=== PATIENT | male | born 1975 | race Two or more races ===

== ENCOUNTER 2016-12-05 10:38 | Emergency (ER) | payer MEDICARE, OTHER ==
[~2016-12-05] VITALS: Ht 188 cm; Wt 93.0 kg
[2016-12-05 10:43] VITALS: BP 100/72
[2016-12-05 11:20] LABS: Basophils # (auto) 0.2 uL; Basophils % (auto) 1.6 % (0.0-2.0); CONDITION Y; Eosinophils # (auto) 0.1 uL; Eosinophils % (auto) 0.9 % (0.0-7.0); Hematocrit 47.3 % (41.0-53.0); Hemoglobin 16.4 g/dL (13.5-17.5); Lymphocytes # (auto) 3.7 uL; Lymphocytes % (auto) 33.5 % (10.0-50.0); Mean Corpuscular Hemoglobin 30.7 pg (28.0-32.0); Mean Corpuscular Hgb Conc. 34.7 g/dL (32.0-36.0); Mean Corpuscular Volume 88.6 fL (80.0-100.0); Mean Platelet Volume 7.9 fL (7.4-10.4); Monocytes # (auto) 0.5 uL; Monocytes % (auto) 4.7 % (0.0-12.0); Neutrophils # (auto) 6.5 uL; Neutrophils % (auto) 59.3 % (37.0-80.0); Platelet Count (auto) 363 10^3/uL (140-450); Red Cell Distribution Width 12.7 % (11.6-16.0); White Blood Cell 10.9 10^3/uL (4.4-10.8)
[2016-12-05 11:48] LABS: Albumin 4.2 g/dL (3.4-5.0); Anion Gap 11 (5-15); Aspartate Aminotransferase 24 U/L (15-37); BUN/Creatinine Ratio 18.8; Blood Urea Nitrogen 21 mg/dL (7-18); Calcium 9.4 mg/dL (8.5-10.1); Carbon Dioxide 21 mmol/L (21-32); Chloride 103 mmol/L (98-107); GFR African American 93 mL/min; GFR Non-African American 77 mL/min; Glucose 275 mg/dL (74-106); Potassium 4.8 mmol/L (3.5-5.1); Sodium 135 mmol/L (136-145)
[2016-12-05 11:52] LABS: Alkaline Phosphatase 48 U/L (45-117); Bilirubin, Total 0.5 mg/dL (0.2-1.0); Total Protein 8.1 g/dL (6.4-8.2)
== END 2016-12-05 13:46 | disposition left against medical advice (07) ==
LOC: ER 10:38
DX: R07.9 Chest pain, unspecified (principal); R06.02 Shortness of breath; Z53.21 Procedure and treatment not carried out due to patient leaving prior to being seen by health care provider
CPT/HCPCS: 36415; 71020; 80053; 82962; 84484; 85025; 93005

== ENCOUNTER → 2019-05-29 | Outpatient (CLI) | payer MEDICARE, OTHER ==
[~2019-05-29] VITALS: Ht 185.4 cm; Wt 98.0 kg
[~2019-05-29] MED LIST: ADENOSINE 82 MG in GIVE UN-DILUTED 0 ML IV ONE
== END | disposition home or self-care (01) ==
LOC: XY 08:06
PROVIDERS: ATTEND Internal Medicine
DX: Z01.810 Encounter for preprocedural cardiovascular examination (principal); I25.10 Atherosclerotic heart disease of native coronary artery without angina pectoris
CPT/HCPCS: 78452; 93017; A9500; J0153

== ENCOUNTER → 2019-05-31 | Outpatient (CLI) | payer MEDICARE, OTHER | END | disposition home or self-care (01) | LOC: XYW 08:23 | PROVIDERS: ATTEND Internal Medicine | DX: Z01.810 Encounter for preprocedural cardiovascular examination (principal); I51.7 Cardiomegaly | CPT/HCPCS: 93306 ==

== ENCOUNTER 2021-03-01 14:06 | Emergency (ER) | payer MEDICARE, OTHER ==
[~2021-03-01] VITALS: Ht 185.4 cm; Wt 86.2 kg
[2021-03-01 14:07] VITALS: BP 111/62
[2021-03-01] MEDS ORDERED: SODIUM CHLORIDE 0.9% 1,000 ML IVB ONE (14:15)
[2021-03-01] MEDS ORDERED: KETOROLAC TROMETH 30 MG/ML 1ML VIAL IV ONE (14:15)
[2021-03-01] MEDS ORDERED: MORPHINE SULFATE 4 MG/ML SYR/VIAL IV ONE (14:15)
[2021-03-01] MEDS ORDERED: ONDANSETRON HCL 4 MG/2 ML VIAL IV ONE (14:15)
== END 2021-03-01 15:15 | disposition left against medical advice (07) ==
LOC: ER 14:06
DX: R10.9 Unspecified abdominal pain (principal); I10 Essential (primary) hypertension; E78.00 Pure hypercholesterolemia, unspecified; I25.10 Atherosclerotic heart disease of native coronary artery without angina pectoris; Z88.0 Allergy status to penicillin; Z98.890 Other specified postprocedural states

== ENCOUNTER → 2021-05-24 | Outpatient (CLI) | payer MEDICARE, OTHER | END | disposition home or self-care (01) | LOC: XYW 09:47 | PROVIDERS: ATTEND Internal Medicine | DX: I51.7 Cardiomegaly (principal); I42.0 Dilated cardiomyopathy; I42.9 Cardiomyopathy, unspecified; I35.0 Nonrheumatic aortic (valve) stenosis | CPT/HCPCS: 93306 ==

== ENCOUNTER 2021-08-22 10:23 | Emergency (ER) | payer MEDICARE, OTHER ==
[~2021-08-22] VITALS: Ht 177.8 cm; Wt 77.1 kg
[2021-08-22 11:05] VITALS: BP 128/82
[2021-08-22 11:29] LABS: Basophils # (auto) 0.2 10 ^3/uL (0-0.2); Basophils % (auto) 1.9 % (0.0-2.0); Eosinophils # (auto) 0 10 ^3/uL (0-0.8); Eosinophils % (auto) 0.4 % (0.0-7.0); Hematocrit 40.5 % (41.0-53.0); Hemoglobin 13.5 g/dL (13.5-17.5); Lymphocytes % (auto) 24.1 % (10.0-50.0); Mean Corpuscular Hemoglobin 29.6 pg (28.0-32.0); Mean Corpuscular Hgb Conc. 33.2 g/dL (32.0-36.0); Mean Corpuscular Volume 89.1 fL (80.0-100.0); Monocytes # (auto) 0.4 10 ^3/uL (0-1.3); Monocytes % (auto) 4.5 % (0.0-12.0); Neutrophils # (auto) 5.7 10 ^3/uL (1.6-8.6); Neutrophils % (auto) 69.1 % (37.0-80.0); Red Blood Cells 4.55 10^6/uL (4.5-5.90); Red Cell Distribution Width 13.6 % (11.8-14.3); White Blood Cell 8.3 10^3/uL (4.4-10.8)
[2021-08-22 11:38] LABS: Albumin 4.6 g/dL (3.4-5.0); Anion Gap 5 (5-15); Blood Urea Nitrogen 18 mg/dL (7-18); Calcium 9.3 mg/dL (8.5-10.1); Carbon Dioxide 25 mmol/L (21-32); Chloride 110 mmol/L (98-107); Glucose 162 mg/dL (74-106); Potassium 3.7 mmol/L (3.5-5.1); Sodium 140 mmol/L (136-145)
[2021-08-22 11:38] LABS: Alcohol, Urine < 3.0 mg/dL (0-10); Amphetamine Screen, Urine POSITIVE (NEGATIVE); Barbiturate Scree,Urine NEGATIVE (NEGATIVE); Benzodiazephine Screen, Urine POSITIVE (NEGATIVE); Cannabinoid Screen, Urine POSITIVE (NEGATIVE); Cocaine Screen, Urine NEGATIVE (NEGATIVE); Opiate Scree,Urine NEGATIVE (NEGATIVE); Phencyclidine Screen, Urine NEGATIVE (NEGATIVE)
[2021-08-22 11:39] LABS: Salicylate 3.9 mg/dL (2.8-20.0)
[2021-08-22 11:40] LABS: Alanine Aminotransferase 40 U/L (16-61); Aspartate Aminotransferase 23 U/L (15-37); BUN/Creatinine Ratio 18.2; Blood Alcohol < 3.0 mg/dL (0-5); GFR African American 105 mL/min; GFR Non-African American 86 mL/min
[2021-08-22 11:41] LABS: Acetaminophen < 2.0 ug/mL (10-30)
[2021-08-22 11:42] LABS: Alkaline Phosphatase 41 U/L (45-117); Bilirubin, Total 0.3 mg/dL (0.2-1.0); Total Protein 8.3 g/dL (6.4-8.2)
[2021-08-23] MEDS ORDERED: FENO134C PO (21:33)
[2021-08-23] MEDS ORDERED: GLIP10TA9 PO (21:33)
[2021-08-23] MEDS ORDERED: CLOP75TA70 PO (21:33)
[2021-08-23] MEDS ORDERED: CYCL-839 PO (21:33)
[2021-08-23] MEDS ORDERED: BACL10TA PO (21:33)
[2021-08-23] MEDS ORDERED: TAMS1CAP25 PO (21:33)
[2021-08-23] MEDS ORDERED: LAMO100T44 PO (21:33)
[2021-08-23] MEDS ORDERED: PRAV20TA3 PO (21:33)
[2021-08-23] MEDS ORDERED: SACU1TAB7 PO (21:33)
[2021-08-23] MEDS ORDERED: METO-289 PO (21:33)
[2021-08-23] MEDS ORDERED: DUTA0.5C11 PO (21:33)
[2021-08-23] MEDS ORDERED: ARIP2TAB PO (21:33)
[2021-08-23] MEDS ORDERED: GABA300C10 PO (21:33)
== END 2021-08-22 14:03 | disposition left against medical advice (07) ==
LOC: EDBD 10:23 → ER 10:23
DX: S61.512A Laceration without foreign body of left wrist, initial encounter (principal); F41.8 Other specified anxiety disorders; I10 Essential (primary) hypertension; E11.9 Type 2 diabetes mellitus without complications; I25.10 Atherosclerotic heart disease of native coronary artery without angina pectoris; E78.5 Hyperlipidemia, unspecified; Z88.0 Allergy status to penicillin; X78.9XXA Intentional self-harm by unspecified sharp object, initial encounter; Y93.89 Activity, other specified; Y92.89 Other specified places as the place of occurrence of the external cause; Y99.8 Other external cause status
CPT/HCPCS: 12002; 36415; 80053; 80307; 80320; 80329; 85025; 99283; J7030

== ENCOUNTER 2021-08-22 18:23 | Emergency (ER) | payer MEDICARE, OTHER ==
[~2021-08-22] VITALS: Ht 185.4 cm; Wt 90.7 kg
[2021-08-23] MEDS ORDERED: LORazepam 0.5 MG TAB PO ONE (05:45)
[2021-08-23] MEDS ORDERED: GABAPENTIN 400 MG CAP PO ONE (12:45)
[2021-08-23] MEDS ORDERED: LORazepam 2MG/ML-1ML VIAL IM ONE (17:00)
[2021-08-23] MEDS ORDERED: FENO134C PO (21:33)
[2021-08-23] MEDS ORDERED: TAMS1CAP25 PO (21:33)
[2021-08-23] MEDS ORDERED: PRAV20TA3 PO (21:33)
[2021-08-23] MEDS ORDERED: LAMO100T44 PO (21:33)
[2021-08-23] MEDS ORDERED: GABA300C10 PO (21:33)
[2021-08-23] MEDS ORDERED: BACL10TA PO (21:33)
[2021-08-23] MEDS ORDERED: METO-289 PO (21:33)
[2021-08-23] MEDS ORDERED: ARIP2TAB PO (21:33)
[2021-08-23] MEDS ORDERED: GLIP10TA9 PO (21:33)
[2021-08-23] MEDS ORDERED: CYCL-839 PO (21:33)
[2021-08-23] MEDS ORDERED: DUTA0.5C11 PO (21:33)
[2021-08-23] MEDS ORDERED: CLOP75TA70 PO (21:33)
[2021-08-23] MEDS ORDERED: SACU1TAB7 PO (21:33)
[2021-08-23] MEDS ORDERED: OLANZapine 5 MG TAB PO ONE (22:15)
[2021-08-23] MEDS ORDERED: GABAPENTIN 300 MG CAP PO ONE (23:00)
[2021-08-23] MEDS ORDERED: GABAPENTIN 100 MG CAP PO ONE (23:00)
[2021-08-24] MEDS ORDERED: LORazepam 2MG/ML-1ML VIAL IM PRN (13:00)
[2021-08-24] MEDS: CYCLOBENZAPRINE HCL 10 MG TAB PO SCH ×2 (15:19→22:21)
[2021-08-24] MEDS: GABAPENTIN 300 MG CAP PO SCH ×2 (15:19→22:21)
[2021-08-24] MEDS ORDERED: TAMSULOSIN HYDROCHLORIDE 0.4 MG CAP PO SCH (22:00)
[2021-08-24] MEDS ORDERED: glipiZIDE 5 MG TAB PO SCH (22:00)
[2021-08-24] MEDS ORDERED: GABAPENTIN 300 MG CAP PO SCH (22:00)
[2021-08-24] MEDS ORDERED: BACLOFEN 10 MG TAB PO SCH (22:00)
[2021-08-24] MEDS ORDERED: Sacubitril-Valsartan (Entresto 49-51 mg) TABLET PO SCH (22:00)
[2021-08-24] MEDS ORDERED: CYCLOBENZAPRINE HCL 10 MG TAB PO SCH (22:00)
[2021-08-25 00:25] VITALS: BP 124/77
[2021-08-25] MEDS ORDERED: lamoTRIgine 100 MG TAB PO SCH (10:00)
[2021-08-25] MEDS ORDERED: CLOPIDOGREL BISULFATE 75 MG TAB PO SCH (10:00)
[2021-08-25] MEDS ORDERED: METOPROLOL SUCCINATE XL 50 MG TAB PO SCH (10:00)
[2021-08-25] MEDS ORDERED: FENOFIBRATE 134 MG PO SCH (10:00)
[2021-08-25] MEDS ORDERED: PRAVASTATIN SODIUM 20 MG TAB PO SCH (10:00)
[2021-08-25] MEDS ORDERED: lamoTRIgine 25 MG TAB PO SCH (10:00)
== END 2021-08-25 01:00 | disposition home or self-care (01) ==
LOC: ER 18:24
DX: F32.9 Major depressive disorder, single episode, unspecified (principal); I10 Essential (primary) hypertension; I25.10 Atherosclerotic heart disease of native coronary artery without angina pectoris; E11.9 Type 2 diabetes mellitus without complications; E78.5 Hyperlipidemia, unspecified
CPT/HCPCS: 82962; 96372; 99285; J2060

== ENCOUNTER 2022-02-27 12:39 | Inpatient (IN) | payer MEDICARE, OTHER ==
[~2022-02-27] VITALS: Ht 185.4 cm; Wt 89.0 kg
[~2022-02-27 12:39] MED LIST changes: -ADENOSINE 82 MG in GIVE UN-DILUTED 0 ML IV ONE; +ARIP2TAB PO; +BACL10TA PO; +CLOP75TA70 PO; +CYCL-839 PO; +DUTA0.5C11 PO; +FENO134C PO; +GABA300C10 PO; +GLIP10TA9 PO; +LAMO100T44 PO; +METO-289 PO; +PRAV20TA3 PO; +SACU1TAB7 PO; +TAMS1CAP25 PO
[2022-02-27] MEDS ORDERED: MORPHINE SULFATE INJ 2 MG/ml SYRG IV ONE (13:00)
[2022-02-27] MEDS ORDERED: PROCHLORPERAZINE EDISYLATE 5 MG/ML 2ML VIAL IV ONE (13:00)
[2022-02-27] MEDS ORDERED: PANTOPRAZOLE 40 MG/10 ML VIAL INJ IV ONE (13:00)
[2022-02-27] MEDS ORDERED: SODIUM CHLORIDE 0.9% 1,000 ML IVB ONE (13:00)
[2022-02-27 13:15] LABS: Basophils # (auto) 0.1 10 ^3/uL (0-0.2); Basophils % (auto) 0.5 % (0.0-2.0); Eosinophils # (auto) 0 10 ^3/uL (0-0.8); Eosinophils % (auto) 0.1 % (0.0-7.0); Hematocrit 50.5 % (41.0-53.0); Hemoglobin 16.3 g/dL (13.5-17.5); Lymphocytes # (auto) 0.9 10 ^3/uL (0.4-5.4); Lymphocytes % (auto) 4.1 % (10.0-50.0); Mean Corpuscular Hemoglobin 29.3 pg (28.0-32.0); Mean Corpuscular Hgb Conc. 32.3 g/dL (32.0-36.0); Mean Corpuscular Volume 90.7 fL (80.0-100.0); Monocytes # (auto) 1.9 10 ^3/uL (0-1.3); Monocytes % (auto) 9.1 % (0.0-12.0); Neutrophils # (auto) 18.4 10 ^3/uL (1.6-8.6); Neutrophils % (auto) 86.2 % (37.0-80.0); Red Blood Cells 5.56 10^6/uL (4.5-5.90); Red Cell Distribution Width 12.7 % (11.8-14.3); White Blood Cell 21.3 10^3/uL (4.4-10.8)
[2022-02-27 13:37] LABS: Calcium 10.5 mg/dL (8.5-10.1); Potassium 4.5 mmol/L (3.5-5.1)
[2022-02-27 13:41] LABS: BUN/Creatinine Ratio 11.3; Bilirubin, Total 0.5 mg/dL (0.2-1.0); Total Protein 8.6 g/dL (6.4-8.2)
[2022-02-27 13:43] LABS: Magnesium 1.6 mg/dL (1.6-2.6)
[2022-02-27] MEDS ORDERED: InsuLIN REG 1unit/0.01ml Soln (100units/ml) IV ONE (14:45)
[2022-02-27] MEDS ORDERED: SODIUM CHLORIDE 0.9% 1,000 ML IV ONE (14:45)
[2022-02-27 14:56] LABS: Urine Bacteria NONE SEEN /hpf (None Seen); Urine Blood 1+ /uL (Negative); Urine Hyaline Cast FEW /lpf (0 - 2); Urine Mucus FEW (None Seen); Urine Specific Gravity 1.025 (1.001-1.035); Urine WBC 2 /hpf (0 - 3)
[2022-02-27] MEDS ORDERED: LORazepam 2MG/ML-1ML VIAL IV ONE (18:45)
[2022-02-27] MEDS ORDERED: LABETALOL HCL 5 MG/ML 4ML SYRINGE IV PRN (21:00)
[2022-02-27] MEDS ORDERED: DEXTROSE (50%) 50ML SYRG IV PRN (21:00)
[2022-02-27] MEDS: SODIUM CHLORIDE 0.9% 1,000 ML IV SCH (21:00)
[2022-02-27] MEDS ORDERED: MORPHINE SULFATE INJ 2 MG/ml SYRG IV PRN (21:00)
[2022-02-27] MEDS ORDERED: ONDANSETRON HCL 4 MG/2 ML VIAL IV PRN (21:00)
[2022-02-27] MEDS ORDERED: NITROGLYCERIN 0.4 MG SL TAB SL PRN (21:00)
[2022-02-27] MEDS: MORPHINE SULFATE INJ 2 MG/ml SYRG IV PRN (21:59)
[2022-02-27 23:32] VITALS: BP 131/77
[2022-02-28] MEDS: InsuLIN REG 1unit/0.01ml Soln (100units/ml) SC SCH ×4 (00:57→18:13)
[2022-02-28] MEDS: MORPHINE SULFATE INJ 2 MG/ml SYRG IV PRN ×2 (02:05→06:02)
[2022-02-28] MEDS ORDERED: cefTRIAXone 1GM/50ML D5W 50 ML IV SCH (02:45)
[2022-02-28 05:00] VITALS: BP 145/84
[2022-02-28] MEDS: ACCU-CHEK COMFORT CURVE STRIP VI SCH ×4 (06:02→18:11)
[2022-02-28 06:10] LABS: Potassium 3.7 mmol/L (3.5-5.1)
[2022-02-28 06:17] LABS: Albumin 3.5 g/dL (3.4-5.0); BUN/Creatinine Ratio 15.1; Calcium 8.3 mg/dL (8.5-10.1)
[2022-02-28] MEDS ORDERED: BUPR100T8 PO (06:21)
[2022-02-28] MEDS ORDERED: ZOLP10TA6 PO (06:21)
[2022-02-28] MEDS ORDERED: SITA50TA28 PO (06:21)
[2022-02-28] MEDS ORDERED: CELE1CAP8 PO (06:21)
[2022-02-28] MEDS ORDERED: ASPI-543 PO (06:22)
[2022-02-28] MEDS ORDERED: INSU1INJ13 SC (06:22)
[2022-02-28 06:26] LABS: Bilirubin, Total 0.4 mg/dL (0.2-1.0); Total Protein 6.8 g/dL (6.4-8.2)
[2022-02-28 07:51] LABS: Basophils # (auto) 0.1 10 ^3/uL (0-0.2); Basophils % (auto) 0.9 % (0.0-2.0); Eosinophils # (auto) 0.3 10 ^3/uL (0-0.8); Eosinophils % (auto) 3.4 % (0.0-7.0); Hematocrit 38.1 % (41.0-53.0); Hemoglobin 12.6 g/dL (13.5-17.5); Lymphocytes # (auto) 1.9 10 ^3/uL (0.4-5.4); Lymphocytes % (auto) 20.4 % (10.0-50.0); Mean Corpuscular Hemoglobin 29.8 pg (28.0-32.0); Mean Corpuscular Hgb Conc. 32.9 g/dL (32.0-36.0); Mean Corpuscular Volume 90.6 fL (80.0-100.0); Monocytes # (auto) 0.8 10 ^3/uL (0-1.3); Monocytes % (auto) 8.8 % (0.0-12.0); Neutrophils # (auto) 6.1 10 ^3/uL (1.6-8.6); Neutrophils % (auto) 66.5 % (37.0-80.0); Red Blood Cells 4.21 10^6/uL (4.5-5.90); Red Cell Distribution Width 12.7 % (11.8-14.3); White Blood Cell 9.2 10^3/uL (4.4-10.8)
[2022-02-28 08:30] VITALS: BP_SYST 130; BP_SYST 157; BP_DIAS 56; BP_DIAS 78
[2022-02-28] MEDS ORDERED: GASTROGRAFIN 120 ML SOL ONE (10:09)
[2022-02-28] MEDS: SODIUM CHLORIDE 0.9% 1,000 ML IV SCH ×2 (10:30→23:40)
[2022-02-28] MEDS: PANTOPRAZOLE 40 MG/10 ML VIAL INJ IV SCH (10:30)
[2022-02-28 12:30] VITALS: BP 134/79
[2022-02-28] MEDS ORDERED: GABAPENTIN 300 MG CAP PO SCH ×2 (14:00)
[2022-02-28 17:00] VITALS: BP 117/71
[2022-02-28] MEDS: GABAPENTIN 300 MG CAP PO SCH ×2 (21:32→22:00)
[2022-02-28 22:00] VITALS: BP 134/78
[2022-03-01 05:00] VITALS: BP 132/86
[2022-03-01 05:32] LABS: Basophils # (auto) 0 10 ^3/uL (0-0.2); Basophils % (auto) 0.4 % (0.0-2.0); Eosinophils # (auto) 0.2 10 ^3/uL (0-0.8); Eosinophils % (auto) 2.5 % (0.0-7.0); Hematocrit 35.2 % (41.0-53.0); Hemoglobin 11.8 g/dL (13.5-17.5); Lymphocytes # (auto) 2.2 10 ^3/uL (0.4-5.4); Lymphocytes % (auto) 25.9 % (10.0-50.0); Mean Corpuscular Hemoglobin 30.1 pg (28.0-32.0); Mean Corpuscular Hgb Conc. 33.4 g/dL (32.0-36.0); Monocytes # (auto) 0.6 10 ^3/uL (0-1.3); Neutrophils # (auto) 5.4 10 ^3/uL (1.6-8.6); Neutrophils % (auto) 64.2 % (37.0-80.0); Red Blood Cells 3.92 10^6/uL (4.5-5.90); Red Cell Distribution Width 12.6 % (11.8-14.3); White Blood Cell 8.4 10^3/uL (4.4-10.8)
[2022-03-01 05:55] LABS: Potassium 3.6 mmol/L (3.5-5.1)
[2022-03-01] MEDS: InsuLIN REG 1unit/0.01ml Soln (100units/ml) SC SCH ×3 (06:00→11:50)
[2022-03-01 06:06] LABS: BUN/Creatinine Ratio 13.2; Calcium 8.1 mg/dL (8.5-10.1)
[2022-03-01] MEDS: ACCU-CHEK COMFORT CURVE STRIP VI SCH ×3 (06:10→11:49)
[2022-03-01] MEDS: GABAPENTIN 300 MG CAP PO SCH ×2 (06:10→11:50)
[2022-03-01] MEDS: SODIUM CHLORIDE 0.9% 1,000 ML IV SCH ×2 (07:00→11:50)
[2022-03-01 09:00] VITALS: BP 133/81
[2022-03-01] MEDS: PANTOPRAZOLE 40 MG/10 ML VIAL INJ IV SCH (09:25)
[2022-03-01 12:50] VITALS: BP 129/83
== END 2022-03-01 13:45 | disposition left against medical advice (07) | DRG 390 ==
LOC: ER 12:41 → TELE 21:01 → TELE-EAST 23:35
PROVIDERS: ADMIT Nurse Practitioner; ATTEND Internal Medicine Pulmonary Disease
DX: K56.609 Unspecified intestinal obstruction, unspecified as to partial versus complete obstruction (principal); N18.9 Chronic kidney disease, unspecified; I12.9 Hypertensive chronic kidney disease with stage 1 through stage 4 chronic kidney disease, or unspecified chronic kidney disease; Z20.822 Contact with and (suspected) exposure to COVID-19; Z53.29 Procedure and treatment not carried out because of patient's decision for other reasons; D72.829 Elevated white blood cell count, unspecified; E11.22 Type 2 diabetes mellitus with diabetic chronic kidney disease; E78.5 Hyperlipidemia, unspecified; I25.10 Atherosclerotic heart disease of native coronary artery without angina pectoris; F12.90 Cannabis use, unspecified, uncomplicated; Z88.0 Allergy status to penicillin; Z80.9 Family history of malignant neoplasm, unspecified; I25.2 Old myocardial infarction
CPT/HCPCS: 36415; 71045; 74176; 74250; 80048; 80053; 81001; 82150; 82962; 83690; 83735; 85025; 87040; 96361; 96374; 96375; C9113; G0378; J1815; J2405

== ENCOUNTER → 2022-06-14 | Outpatient (CLI) | payer MEDICARE, OTHER ==
[~2022-06-14] MED LIST changes: +ASPI-543 PO; -BACL10TA PO; +BUPR100T8 PO; +CELE1CAP8 PO; -CYCL-839 PO; -DUTA0.5C11 PO; +INSU1INJ13 SC; +SITA50TA28 PO; +ZOLP10TA6 PO
== END | disposition home or self-care (01) ==
LOC: XYW 09:01
PROVIDERS: ATTEND Internal Medicine
DX: I51.7 Cardiomegaly (principal); I50.22 Chronic systolic (congestive) heart failure
CPT/HCPCS: 93306

== ENCOUNTER → 2023-02-13 | Outpatient (CLI) | payer MEDICARE, OTHER ==
[~2023-02-13] MED LIST changes: +BUPR100T16 PO; -BUPR100T8 PO; -FENO134C PO; +FENO134C19 PO; +GABA-1250 PO; -GABA300C10 PO
== END | disposition home or self-care (01) ==
LOC: XYW 14:54
PROVIDERS: ATTEND Student in an Organized Health Care Education/Training Program
DX: I51.89 Other ill-defined heart diseases (principal); I50.22 Chronic systolic (congestive) heart failure
CPT/HCPCS: 93306

== ENCOUNTER 2023-04-01 21:01 | Emergency (ER) | payer MEDICARE, OTHER ==
[~2023-04-01] VITALS: Ht 185.4 cm; Wt 91.8 kg
[2023-04-01 22:30] VITALS: BP 115/71; PULSE 96; RESP 20; O2SAT 97
== END 2023-04-01 22:51 | disposition left against medical advice (07) ==
LOC: ER 21:01
DX: R09.A2 Foreign body sensation, throat (principal); Z53.21 Procedure and treatment not carried out due to patient leaving prior to being seen by health care provider

== ENCOUNTER 2023-05-29 09:49 | Inpatient (IN) | payer MEDICARE, OTHER ==
[~2023-05-29] VITALS: Ht 177.8 cm; Wt 87.9 kg
[2023-05-29 10:30] LABS: Basophils # (auto) 0.1 10 ^3/uL (0-0.2); Basophils % (auto) 0.5 % (0.0-2.0); Eosinophils # (auto) 0.1 10 ^3/uL (0-0.8); Eosinophils % (auto) 0.3 % (0.0-7.0); Hematocrit 49.9 % (41.0-53.0); Hemoglobin 15.6 g/dL (13.5-17.5); Lymphocytes # (auto) 2.2 10 ^3/uL (0.4-5.4); Lymphocytes % (auto) 11.6 % (10.0-50.0); Mean Corpuscular Hemoglobin 30.4 pg (28.0-32.0); Mean Corpuscular Hgb Conc. 31.2 g/dL (32.0-36.0); Mean Corpuscular Volume 97.5 fL (80.0-100.0); Monocytes % (auto) 5.4 % (0.0-12.0); Neutrophils # (auto) 15.4 10 ^3/uL (1.6-8.6); Neutrophils % (auto) 82.2 % (37.0-80.0); Nucleated Red Blood Cells % 0.1 %; Red Blood Cells 5.12 10^6/uL (4.5-5.90); Red Cell Distribution Width 13.9 % (11.8-14.3); White Blood Cell 18.7 10^3/uL (4.4-10.8)
[2023-05-29 10:42] LABS: Urine Bacteria NONE SEEN /hpf (None Seen); Urine Blood 1+ /uL (Negative); Urine Clarity Clear (Clear); Urine Color Colorless (Yellow); Urine Protein, UAD TRACE (Negative); Urine Specific Gravity 1.023 (1.001-1.035); Urine Urobilinogen Normal (Negative); Urine WBC 1 /hpf (0 - 3)
[2023-05-29] MEDS ORDERED: PANTOPRAZOLE 40 MG/10 ML VIAL INJ IV ONE (10:45)
[2023-05-29] MEDS ORDERED: SODIUM CHLORIDE 0.9% 1,000 ML IVB ONE (10:45)
[2023-05-29] MEDS ORDERED: MORPHINE SULFATE 4 MG/ML SYR/VIAL IV ONE (10:45)
[2023-05-29] MEDS ORDERED: PROCHLORPERAZINE EDISYLATE 5 MG/ML 2ML VIAL IV ONE (10:45)
[2023-05-29 10:47] LABS: Alanine Aminotransferase 20 U/L (7-40); Albumin 5.2 g/dL (3.2-4.8); Alkaline Phosphatase 46 U/L (46-116); Anion Gap 27.00001 (5-15); Aspartate Aminotransferase 15 U/L (13-40); Bilirubin, Total 0.3 mg/dL (0.2-1.0); Blood Urea Nitrogen 19 mg/dL (9-23); Calcium 9.2 mg/dL (8.5-10.1); Chloride 95 mmol/L (98-107); Glucose 310 mg/dL (74-106); Potassium 4.1 mmol/L (3.5-5.1); Sodium 132 mmol/L (136-145)
[2023-05-29 10:48] LABS: Total Protein 8.1 g/dL (5.7-8.2)
[2023-05-29 10:54] LABS: Carbon Dioxide < 10 mmol/L (20-30)
[2023-05-29 10:59] VITALS: PULSE 66; RESP 22; O2SAT 96
[2023-05-29] MEDS ORDERED: INSULIN LANTUS (GLARGINE) 1 /0.01ml (100units/ml) SC ONE (11:15)
[2023-05-29] MEDS ORDERED: DEXTROSE (50%) 50ML SYRG IV PRN ×2 (11:15→12:00)
[2023-05-29] MEDS ORDERED: INSULIN DRIP 100 UNIT/100ML 100 ML IV SCH ×2 (11:15→12:00)
[2023-05-29] MEDS ORDERED: METOCLOPRAMIDE HCL 5MG/ml INJ 2ml VIAL IV PRN (12:00)
[2023-05-29] MEDS ORDERED: NITROGLYCERIN 0.4 MG SL TAB SL PRN (12:00)
[2023-05-29] MEDS ORDERED: DOCUSATE SOD 100 MG CAP PO PRN (12:00)
[2023-05-29] MEDS ORDERED: MAGNESIUM SULFATE 1GM/100ML 200 ML IV ONE (12:00)
[2023-05-29] MEDS ORDERED: MORPHINE SULFATE INJ 2 MG/ml SYRG IV PRN ×2 (12:00)
[2023-05-29] MEDS ORDERED: ONDANSETRON HCL 4 MG/2 ML VIAL IV PRN (12:00)
[2023-05-29] MEDS ORDERED: ACCU-CHEK COMFORT CURVE STRIP VI SCH (12:00)
[2023-05-29] MEDS ORDERED: HYDROcodone-ACET 5/325MG TAB PO PRN (12:00)
[2023-05-29 12:11] LABS: Base Excess -21.2 mmol/L (-2.0-2.0)
[2023-05-29] MEDS ORDERED: hydrALAZINE HCL 20 MG/ML VL IV PRN (12:45)
[2023-05-29 13:06] LABS: Magnesium 2.2 mg/dL (1.6-2.6)
[2023-05-29 13:07] LABS: Phosphorus 5.3 mg/dL (2.4-5.1)
[2023-05-29] MEDS: ACCU-CHEK COMFORT CURVE STRIP VI SCH ×7 (13:37→22:32)
[2023-05-29] MEDS: SODIUM CHLORIDE 0.9% 1,000 ML IV SCH ×2 (13:37→14:07)
[2023-05-29] MEDS: BUPROPION 300 MG PO SCH (14:00)
[2023-05-29] MEDS ORDERED: LORazepam 2MG/ML-1ML VIAL IV ONE (14:45)
[2023-05-29] MEDS ORDERED: SODIUM CHLORIDE 0.9% 1,000 ML IV SCH (16:00)
[2023-05-29 16:31] LABS: Chloride 106 mmol/L (98-107); Potassium 3.9 mmol/L (3.5-5.1); Sodium 136 mmol/L (136-145)
[2023-05-29 16:32] LABS: Anion Gap 20.00001 (5-15)
[2023-05-29 16:33] LABS: Calcium 7.9 mg/dL (8.7-10.4)
[2023-05-29 16:37] LABS: BUN/Creatinine Ratio 18.2 (10.0-20.0); Blood Urea Nitrogen 24 mg/dL (9-23); Glucose 187 mg/dL (74-106)
[2023-05-29 16:46] LABS: Carbon Dioxide < 10 mmol/L (20-30)
[2023-05-29] MEDS: POTASSIUM CHLORIDE 20 MEQ in SODIUM CHLORIDE 0.9% 1,000 ML IV SCH (18:00)
[2023-05-29] MEDS: D5W/SOD CHL 0.45%/KCL 20MEQ 1,000 ML IV SCH ×2 (18:47→19:02)
[2023-05-29 19:30] VITALS: PULSE 93; RESP 18; O2SAT 99
[2023-05-29 21:00] LABS: Chloride 109 mmol/L (98-107); Potassium 4.2 mmol/L (3.5-5.1); Sodium 137 mmol/L (136-145)
[2023-05-29 21:01] LABS: Anion Gap 14 (5-15); Calcium 7.7 mg/dL (8.7-10.4); Carbon Dioxide 14 mmol/L (20-30)
[2023-05-29 21:06] LABS: BUN/Creatinine Ratio 11.9 (10.0-20.0); Blood Urea Nitrogen 14 mg/dL (9-23); Glucose 155 mg/dL (74-106)
[2023-05-29] MEDS: TAMSULOSIN HYDROCHLORIDE 0.4 MG CAP PO SCH (22:00)
[2023-05-29] MEDS: CELECOXIB 100 MG CAP PO SCH (22:00)
[2023-05-29] MEDS: ARIPIPRAZOLE 30 MG PO SCH (22:00)
[2023-05-29] MEDS: SACUBITRIL VALSARTAN PO SCH (22:00)
[2023-05-29] MEDS: GABAPENTIN 300 MG CAP PO SCH (22:00)
[2023-05-30] VITALS (7 sets, daily range): BP systolic 109–148; BP diastolic 63–78; PULSE 78–96; RESP 18–20; TEMP 98.4–98.7; O2SAT 94–99
[2023-05-30] MEDS: ACCU-CHEK COMFORT CURVE STRIP VI SCH ×6 (00:17→20:21)
[2023-05-30] MEDS: POTASSIUM CHLORIDE 20 MEQ in SODIUM CHLORIDE 0.9% 1,000 ML IV SCH (00:44)
[2023-05-30 01:00] LABS: Chloride 111 mmol/L (98-107); Potassium 3.9 mmol/L (3.5-5.1); Sodium 136 mmol/L (136-145)
[2023-05-30 01:01] LABS: Anion Gap 10 (5-15); Calcium 7.6 mg/dL (8.7-10.4); Carbon Dioxide 15 mmol/L (20-30)
[2023-05-30 01:06] LABS: Blood Urea Nitrogen 9 mg/dL (9-23); Glucose 156 mg/dL (74-106)
[2023-05-30] MEDS: D5W/SOD CHL 0.45%/KCL 20MEQ 1,000 ML IV SCH (01:20)
[2023-05-30] MEDS: InsuLIN REG 1unit/0.01ml Soln (100units/ml) SC SCH ×5 (04:21→20:22)
[2023-05-30 05:34] LABS: Basophils # (auto) 0 10 ^3/uL (0-0.2); Basophils % (auto) 0.3 % (0.0-2.0); Eosinophils # (auto) 0 10 ^3/uL (0-0.8); Eosinophils % (auto) 0.1 % (0.0-7.0); Hematocrit 43.2 % (41.0-53.0); Lymphocytes # (auto) 1.8 10 ^3/uL (0.4-5.4); Lymphocytes % (auto) 12.5 % (10.0-50.0); Mean Corpuscular Hemoglobin 30.7 pg (28.0-32.0); Mean Corpuscular Hgb Conc. 32.4 g/dL (32.0-36.0); Mean Corpuscular Volume 94.9 fL (80.0-100.0); Monocytes # (auto) 1.1 10 ^3/uL (0-1.3); Monocytes % (auto) 7.6 % (0.0-12.0); Neutrophils # (auto) 11.5 10 ^3/uL (1.6-8.6); Neutrophils % (auto) 79.5 % (37.0-80.0); Red Blood Cells 4.55 10^6/uL (4.5-5.90); Red Cell Distribution Width 13.8 % (11.8-14.3); White Blood Cell 14.5 10^3/uL (4.4-10.8)
[2023-05-30 05:38] LABS: Alanine Aminotransferase 13 U/L (7-40); Albumin 4.1 g/dL (3.2-4.8); Alkaline Phosphatase 34 U/L (46-116); Anion Gap 15 (5-15); Aspartate Aminotransferase 12 U/L (13-40); BUN/Creatinine Ratio 8.2 (10.0-20.0); Bilirubin, Total 0.4 mg/dL (0.2-1.0); Blood Urea Nitrogen 9 mg/dL (9-23); Calcium 8.1 mg/dL (8.7-10.4); Carbon Dioxide 14 mmol/L (20-30); Chloride 109 mmol/L (98-107); Glucose 151 mg/dL (74-106); Sodium 138 mmol/L (136-145); Total Protein 6.4 g/dL (5.7-8.2)
[2023-05-30 08:21] LABS: Chloride 109 mmol/L (98-107); Potassium 4.2 mmol/L (3.5-5.1); Sodium 136 mmol/L (136-145)
[2023-05-30 08:22] LABS: Anion Gap 12 (5-15); Calcium 8.2 mg/dL (8.5-10.1); Carbon Dioxide 15 mmol/L (20-30)
[2023-05-30 08:27] LABS: BUN/Creatinine Ratio 6.4 (10.0-20.0); Blood Urea Nitrogen 7 mg/dL (9-23); Glucose 165 mg/dL (74-106)
[2023-05-30] MEDS: BUPROPION 300 MG PO SCH (10:00)
[2023-05-30] MEDS: lamoTRIgine 100 MG TAB PO SCH (10:00)
[2023-05-30] MEDS ORDERED: INSULIN LANTUS (GLARGINE) 1 /0.01ml (100units/ml) SC SCH (10:00)
[2023-05-30] MEDS: SACUBITRIL VALSARTAN PO SCH ×2 (10:00→21:19)
[2023-05-30] MEDS: INSULIN LANTUS (GLARGINE) 1 /0.01ml (100units/ml) SC SCH (10:50)
[2023-05-30] MEDS: ASPirin-EC 81 mg tab PO SCH (10:59)
[2023-05-30] MEDS: CLOPIDOGREL BISULFATE 75 MG TAB PO SCH (11:00)
[2023-05-30] MEDS: TAMSULOSIN HYDROCHLORIDE 0.4 MG CAP PO SCH ×2 (11:00→21:18)
[2023-05-30] MEDS: GABAPENTIN 300 MG CAP PO SCH ×2 (11:01→21:18)
[2023-05-30] MEDS: METOPROLOL SUCCINATE XL 50 MG TAB PO SCH (11:02)
[2023-05-30] MEDS: CELECOXIB 100 MG CAP PO SCH ×2 (11:02→21:17)
[2023-05-30] MEDS: PRAVASTATIN SODIUM 20 MG TAB PO SCH (11:51)
[2023-05-30 12:03] LABS: Amphetamine Screen, Urine Neg (NEGATIVE); Barbiturate Scree,Urine Neg (NEGATIVE); Benzodiazephine Screen, Urine Neg (NEGATIVE); Cocaine Screen, Urine Neg (NEGATIVE)
[2023-05-30 12:04] LABS: Cannabinoid Screen, Urine Pos (NEGATIVE); Opiate Scree,Urine Neg (NEGATIVE); Phencyclidine Screen, Urine Neg (NEGATIVE)
[2023-05-30 13:36] LABS: Chloride 106 mmol/L (98-107); Potassium 3.8 mmol/L (3.5-5.1); Sodium 136 mmol/L (136-145)
[2023-05-30 13:37] LABS: Anion Gap 11 (5-15); Calcium 8.3 mg/dL (8.5-10.1); Carbon Dioxide 19 mmol/L (20-30)
[2023-05-30 13:42] LABS: BUN/Creatinine Ratio 12.4 (10.0-20.0); Blood Urea Nitrogen 13 mg/dL (9-23); Glucose 183 mg/dL (74-106)
[2023-05-30] MEDS: ARIPIPRAZOLE 30 MG PO SCH (21:18)
[2023-05-31] MEDS: ACCU-CHEK COMFORT CURVE STRIP VI SCH ×4 (00:28→12:00)
[2023-05-31] MEDS: InsuLIN REG 1unit/0.01ml Soln (100units/ml) SC SCH ×4 (00:29→12:00)
[2023-05-31 05:00] VITALS: BP 121/65; PULSE 84; RESP 18; TEMP 98.6; O2SAT 97
[2023-05-31 06:24] LABS: Basophils # (auto) 0 10 ^3/uL (0-0.2); Basophils % (auto) 0.4 % (0.0-2.0); Eosinophils # (auto) 0.1 10 ^3/uL (0-0.8); Eosinophils % (auto) 0.8 % (0.0-7.0); Hematocrit 38.3 % (41.0-53.0); Hemoglobin 12.8 g/dL (13.5-17.5); Lymphocytes % (auto) 27.6 % (10.0-50.0); Mean Corpuscular Hemoglobin 30.7 pg (28.0-32.0); Mean Corpuscular Hgb Conc. 33.5 g/dL (32.0-36.0); Mean Corpuscular Volume 91.8 fL (80.0-100.0); Monocytes # (auto) 0.9 10 ^3/uL (0-1.3); Monocytes % (auto) 8.4 % (0.0-12.0); Neutrophils # (auto) 6.8 10 ^3/uL (1.6-8.6); Neutrophils % (auto) 62.8 % (37.0-80.0); Red Blood Cells 4.18 10^6/uL (4.5-5.90); Red Cell Distribution Width 13.2 % (11.8-14.3); White Blood Cell 10.9 10^3/uL (4.4-10.8)
[2023-05-31 06:34] LABS: Chloride 107 mmol/L (98-107); Potassium 3.3 mmol/L (3.5-5.1); Sodium 139 mmol/L (136-145)
[2023-05-31 06:35] LABS: Anion Gap 9 (5-15); Calcium 8.6 mg/dL (8.5-10.1); Carbon Dioxide 23 mmol/L (20-30)
[2023-05-31 06:40] LABS: BUN/Creatinine Ratio 11.6 (10.0-20.0); Blood Urea Nitrogen 11 mg/dL (9-23); Glucose 143 mg/dL (74-106)
[2023-05-31 08:00] VITALS: PULSE 80; RESP 18; O2SAT 99
[2023-05-31] MEDS: CELECOXIB 100 MG CAP PO SCH (08:14)
[2023-05-31] MEDS: PRAVASTATIN SODIUM 20 MG TAB PO SCH (08:15)
[2023-05-31] MEDS: lamoTRIgine 100 MG TAB PO SCH (08:15)
[2023-05-31] MEDS ORDERED: POTASSIUM EFFERVESENT TAB 25 MEQ PO ONE (08:15)
[2023-05-31] MEDS: CLOPIDOGREL BISULFATE 75 MG TAB PO SCH (08:16)
[2023-05-31] MEDS: TAMSULOSIN HYDROCHLORIDE 0.4 MG CAP PO SCH (08:16)
[2023-05-31] MEDS: ASPirin-EC 81 mg tab PO SCH (08:16)
[2023-05-31] MEDS: GABAPENTIN 300 MG CAP PO SCH (08:16)
[2023-05-31] MEDS: METOPROLOL SUCCINATE XL 50 MG TAB PO SCH (08:16)
[2023-05-31 09:00] VITALS: BP 113/66; PULSE 78; RESP 19; TEMP 98.3; O2SAT 97
[2023-05-31] MEDS: BUPROPION 300 MG PO SCH (09:00)
[2023-05-31] MEDS: SACUBITRIL VALSARTAN PO SCH (09:01)
[2023-05-31] MEDS: INSULIN LANTUS (GLARGINE) 1 /0.01ml (100units/ml) SC SCH (10:00)
[2023-05-31 13:00] VITALS: BP 131/72; PULSE 82; RESP 18; TEMP 98; O2SAT 97
== END 2023-05-31 13:30 | disposition home or self-care (01) | DRG 637 ==
LOC: ER 09:53 → TELE 12:33 → TELE-WESTW 05-30 10:20 → WEST WING 05-30 20:00
PROVIDERS: ADMIT Internal Medicine; ATTEND Student in an Organized Health Care Education/Training Program
DX: E11.10 Type 2 diabetes mellitus with ketoacidosis without coma (principal); N17.0 Acute kidney failure with tubular necrosis; E78.5 Hyperlipidemia, unspecified; F31.9 Bipolar disorder, unspecified; F41.9 Anxiety disorder, unspecified; I25.10 Atherosclerotic heart disease of native coronary artery without angina pectoris; I10 Essential (primary) hypertension; Z88.0 Allergy status to penicillin; Z80.9 Family history of malignant neoplasm, unspecified; Z95.5 Presence of coronary angioplasty implant and graft; I25.2 Old myocardial infarction
CPT/HCPCS: 36415; 36600; 74176; 80048; 80053; 80307; 81001; 82010; 82805; 82962; 83036; 83690; 83735; 83930; 84100; 84439; 84443; 85025; 96361; 96372; 96374; 96375; 99291; C9113; G0378; J1815

== ENCOUNTER → 2023-06-07 | Outpatient (CLI) | payer MEDICARE, OTHER ==
[~2023-06-07] VITALS: Ht 185.4 cm; Wt 90.7 kg
[~2023-06-07] MED LIST changes: +ADENOSINE 76 MG in GIVE UN-DILUTED 0 ML IV ONE; -ARIP2TAB PO
== END | disposition home or self-care (01) ==
LOC: XYW 03-23 07:52
PROVIDERS: ATTEND Internal Medicine
DX: I50.22 Chronic systolic (congestive) heart failure (principal); I25.10 Atherosclerotic heart disease of native coronary artery without angina pectoris; I42.0 Dilated cardiomyopathy; R06.02 Shortness of breath; R06.09 Other forms of dyspnea; E11.65 Type 2 diabetes mellitus with hyperglycemia
CPT/HCPCS: 78452; 93017; A9500; J0153

== ENCOUNTER → 2024-03-22 | Outpatient (CLI) | payer MEDICARE, OTHER ==
[~2024-03-22] MED LIST changes: -ADENOSINE 76 MG in GIVE UN-DILUTED 0 ML IV ONE; +CELE1CAP29 PO; -CELE1CAP8 PO
== END | disposition home or self-care (01) ==
LOC: LAB 09:18
PROVIDERS: ATTEND Internal Medicine
DX: E11.65 Type 2 diabetes mellitus with hyperglycemia (principal); R53.83 Other fatigue
CPT/HCPCS: 36415; 83036; 84443

== ENCOUNTER → 2024-04-04 | Outpatient (CLI) | payer MEDICARE, OTHER | END | disposition home or self-care (01) | LOC: LAB 12:00 | PROVIDERS: ATTEND Internal Medicine | DX: R53.83 Other fatigue (principal); R53.1 Weakness | CPT/HCPCS: 36415; 82626; 84403 ==